=== PATIENT | female | born 1990 | race Hispanic/Latino ===

== ENCOUNTER 2017-11-13 12:05 | Emergency (ER) | payer OTHER, SELFPAY ==
[2017-11-13] MEDS ORDERED: Dexamethasone 4 mg/ml Vial ONE (12:34)
== END 2017-11-13 13:03 | disposition home or self-care (01) ==
LOC: ERS 12:05
DX: J02.9 Acute pharyngitis, unspecified (principal); F41.9 Anxiety disorder, unspecified; J45.909 Unspecified asthma, uncomplicated
CPT/HCPCS: 87081; 87430; 99283; J1100

== ENCOUNTER 2018-03-08 22:06 | Emergency (ER) | payer SELFPAY ==
[2018-03-09] MEDS ORDERED: diphenhydrAMINE 50 MG/ML VIAL ONE (00:07)
[2018-03-09] MEDS ORDERED: Metoclopramide HCl 10 MG/2 ML VIAL ONE (00:07)
[2018-03-09] MEDS ORDERED: Acetaminophen 500 MG TAB ONE (00:07)
[2018-03-09 00:14] LABS: #Basophils 0.1 thou/uL (0.0-0.2); #Eosinphils 0.2 thou/uL (0.0-0.7); #Lymphocytes 2.9 thou/uL (1.20-3.40); #Monocytes 0.8 thou/uL (0.11-0.59); #Neutrophils 4.3 thou/uL (1.40-6.50); %Basophils 0.9 % (0.0-1.0); %Lymphocytes 35.1 % (21.0-51.0); %Monocytes 9.6 % (0.0-10.0); %Neutrophils 52.4 % (42.0-75.0); Mean Corpuscular HGB CONC 31.8 g/dL (32.0-36.0); Mean Corpuscular Hemoglobin 26.9 pg (27.0-31.0); Mean Corpuscular Volume 84.5 fL (78.0-98.0); Mean Platelet Volume 7.3 fL (7.4-10.4); Platelet Count 339 thou/uL (130-400); RBC Distribution Width 15.9 % (11.5-14.5); Red Blood Cell (RBC) Count 4.45 mill/uL (4.20-5.40); White Blood Cell (WBC) Count 8.3 thou/uL (4.8-10.8)
[2018-03-09 00:35] LABS: ALT (SGPT) 7 U/L (8-55); AST (SGOT) 12 U/L (5-34); Albumin 3.9 g/dL (3.5-5.0); Alkaline Phosphatase 58 U/L (40-150); Anion Gap 13 mmol/L (10-20); BUN (Urea Nitrogen) 10 mg/dL (7.0-18.7); Bilirubin, Total Less than 0.2 mg/dL (0.2-1.2); Calc. Creatinine Clearance 0 mL/min (70-130); Calcium 9.4 mg/dL (7.8-10.44); Carbon Dioxide 24 mmol/L (22-29); Chloride 105 mmol/L (98-107); Estimated GFR-MDRD Greater than 90; Globulin 3.2 g/dL (2.4-3.5); Glucose 83 mg/dL (70-105); Potassium 3.6 mmol/L (3.5-5.1); Protein, Total 7.1 g/dL (6.0-8.3); Sodium 138 mmol/L (136-145)
[2018-03-09 00:39] LABS: Bilirubin Negative (Negative); Blood, Urine Negative (Negative); Clarity CLEAR (Clear); Glucose, Urine (Dipstick) Negative (Negative); Leukocyte Negative (Negative); Nitrite Negative (Negative); Protein, Urine (Dipstick) Negative (Neg-Trace); Specific Gravity, Urine 1.034 (1.002-1.036); Urobilinogen 0.2 mg/dL (0.2-1.0)
--- NOTE | 2018-03-09 08:19 | CT ---
PRELIMINARY REPORT/[facility]/EMERGENCY AFTER HOURS PROCEDURE: EXAM: CT Head Without Intravenous Contrast EXAM DATE/TIME: Exam ordered 03/09/2018 12:31 AM CLINICAL HISTORY: 27 years old, female; Pain; Headache; Migraine; Patient HX: , F27 with no HX of migraines presen ts with migraine x2 weeks. Pt also states she is (13 weeks). Pt states pain is right behind her eyes and in center of her forehead. Pt notes that over the past couple of days she has felt lethargic and has had some blurry vision. Pt reports photophobia and phonophobia. Pt reports a fhx of brain aneurism. Pt also reports sudden vomiting x2 days twice per day which she states is not associ ated with her morning sickness. Pt denies any numbness or tingling. TECHNIQUE: Axial computed tomography images of the head/brain without intravenous contrast. COMPARISON: No relevant prior studies available. FINDINGS: Brain: Unremarkable. No hemorrhage. No significant white matter disease. No edema. Ventricles: Unremarkable. No ventriculomegaly. Bones/joints: Unremarkable. No acute fracture. Soft tissues: Unremarkable. Sinuses: Unremarkable as visualized. No acute sinusitis. Mastoid air cells: Unremarkable as visualized. No mastoid effusion. IMPRESSION: Normal head/brain CT. Thank you for allowing us to participate in the care of your patient. Dictated and Authenticated by: Niraj Chase MD 03/09/2018 1:03 AM Central Time ([place] & [place]) FINAL REPORT CT BRAIN WITHOUT CONTRAST: Date: 03/08/18 FINDINGS/IMPRESSION: I agree with the preliminary report given by Ashlee. POS: [facility]
== END 2018-03-09 03:18 | disposition home or self-care (01) ==
LOC: ERS 22:06
DX: O99.89 Other specified diseases and conditions complicating pregnancy, childbirth and the puerperium (principal); R51 Headache; O99.511 Diseases of the respiratory system complicating pregnancy, first trimester; J45.909 Unspecified asthma, uncomplicated; O99.341 Other mental disorders complicating pregnancy, first trimester; F41.9 Anxiety disorder, unspecified; Z3A.13 13 weeks gestation of pregnancy
CPT/HCPCS: 36415; 70450; 80053; 81003; 85025; 96365; 96366; 96375; J1200; J2765

== ENCOUNTER 2018-05-21 14:09 | Outpatient (CLI) | payer OTHER ==
--- NOTE | 2018-05-21 15:44 | ULT ---
OBSTETRICAL ULTRASOUND: 05/21/18 COMPARISON: None. HISTORY: 28-year-old female undergoing evaluation of anatomy, size, and dates. TECHNIQUE: Multiplanar luna scale sonographic imaging of the gravid uterus obtained. A single intrauterine gestation is present with a heart rate of 140 beats per minute. pre sentation is vertex,. Placenta is located posteriorly, with no evidence for placental previa or abrup tion. Cervical length is estimated at at least 3.3 cm. intracranial contents, nose and lips, stomach, umbilical cord insertion and region of kidneys appears grossly unremarkable. Region of urinary bladder appears grossly unremarkable as does the umbilical cord. spine appears within normal limits. A three vessel cord is documented. Amniotic fluid index is approximately 7 cm. The four chamber heart view is suboptimal. BIOMETRY: BPD 5.4 cm 22 weeks, 4 days HC 21.0 cm 23 weeks, 1 day AC 17.2 cm 22 weeks, 1 day FL 4.2 cm 23 weeks, 5 days Average aged based on ultrasound is 22 weeks, 6 days. Estimated date of delivery is 09/18/18. Estimate d weight is 543 grams plus/minus 80 grams. IMPRESSION: Single live intrauterine gestation as detailed above. Amniotic fluid index is estimated at 7 cm. Four chamber heart view is suboptimal. POS: [facility]
== END 2018-05-21 14:10 | disposition home or self-care (01) ==
LOC: ULT 14:09
PROVIDERS: ATTEND Family Medicine
DX: Z34.82 Encounter for supervision of other normal pregnancy, second trimester (principal); Z3A.22 22 weeks gestation of pregnancy
CPT/HCPCS: 76805

== ENCOUNTER 2018-11-10 13:25 | Emergency (ER) | payer OTHER, SELFPAY ==
[2018-11-10] MEDS ORDERED: Lidocaine 1% w/Epinephrine 1:100K 20 ML VIAL ONE (14:27)
--- NOTE | 2018-11-10 14:33 | RAD ---
Radiograph right forearm 2 views: HISTORY: Laceration through glass FINDINGS: There is a small, somewhat faint radiopaque foreign body measuring approximate 6 x 1 mm in the soft t issues just medial to the proximal ulna at the elbow seen on the AP view. No subcutaneous emphysema. Radius and ulna are normal. IMPRESSION: Small density in the soft tissues of the elbow. This could either represent a foreign body such as gl ass embedded in the soft tissues, or a calcification.
[2018-11-10] MEDS ORDERED: Bacitracin Zinc 1 Packet ONE (14:56)
== END 2018-11-10 15:04 | disposition home or self-care (01) ==
LOC: ERS 13:25
DX: S51.811A Laceration without foreign body of right forearm, initial encounter (principal); W22.8XXA Striking against or struck by other objects, initial encounter
CPT/HCPCS: 12002; J2001

== ENCOUNTER 2019-05-07 14:44 | Emergency (ER) | payer SELFPAY ==
[2019-05-07] MEDS ORDERED: Proparacaine 0.5% Opth 15 ML BOT ONE (14:57)
[2019-05-07] MEDS ORDERED: Fluorescein Opthalmic Strip ONE (14:57)
[2019-05-07] MEDS ORDERED: Ciprofloxacin 0.3% Ophth Drops 2.5 ml Bottle L EYE SCH ×2 (15:30→15:45)
== END 2019-05-07 15:42 | disposition home or self-care (01) ==
LOC: ERS 14:44
DX: S05.02XA Injury of conjunctiva and corneal abrasion without foreign body, left eye, initial encounter (principal); F41.9 Anxiety disorder, unspecified; J45.909 Unspecified asthma, uncomplicated; X58.XXXA Exposure to other specified factors, initial encounter
CPT/HCPCS: 99283

== ENCOUNTER 2019-06-06 21:02 | Emergency (ER) | payer OTHER ==
[2019-06-06] MEDS ORDERED: Ibuprofen 200 MG TAB ONE (21:22)
== END 2019-06-06 22:04 | disposition home or self-care (01) ==
LOC: ERS 21:02
DX: J11.1 Influenza due to unidentified influenza virus with other respiratory manifestations (principal); F41.9 Anxiety disorder, unspecified; J45.909 Unspecified asthma, uncomplicated
CPT/HCPCS: 99281

== ENCOUNTER 2019-06-08 17:39 | Emergency (ER) | payer OTHER ==
[2019-06-08] MEDS ORDERED: Promethazine HCl 25 MG/ML VIAL ONE (19:04)
[2019-06-08 19:47] LABS: #Basophils 0.1 thou/uL (0.0-0.2); #Lymphocytes 2.2 thou/uL (1.20-3.40); #Monocytes 0.6 thou/uL (0.11-0.59); #Neutrophils 3.9 thou/uL (1.40-6.50); %Eosinophils 0.5 % (0.0-10.0); %Lymphocytes 31.6 % (21.0-51.0); %Monocytes 9.1 % (0.0-10.0); %Neutrophils 57.7 % (42.0-75.0); Hemoglobin 11.3 g/dL (12.0-16.0); Mean Corpuscular HGB CONC 30.9 g/dL (32.0-36.0); Mean Corpuscular Hemoglobin 24.9 pg (27.0-31.0); Mean Corpuscular Volume 80.5 fL (78.0-98.0); Mean Platelet Volume 8.3 fL (7.4-10.4); Platelet Count 280 thou/uL (130-400); RBC Distribution Width 16.8 % (11.5-14.5); Red Blood Cell (RBC) Count 4.53 mill/uL (4.20-5.40); White Blood Cell (WBC) Count 6.8 thou/uL (4.8-10.8)
[2019-06-08 20:09] LABS: ALT (SGPT) 10 U/L (8-55); AST (SGOT) 20 U/L (5-34); Alkaline Phosphatase 65 U/L (40-110); Anion Gap 13 mmol/L (10-20); BUN (Urea Nitrogen) 8 mg/dL (7.0-18.7); Bilirubin, Total Less than 0.2 mg/dL (0.2-1.2); Calc. Creatinine Clearance 0 mL/min (70-130); Calcium 8.7 mg/dL (7.8-10.44); Carbon Dioxide 27 mmol/L (22-29); Chloride 105 mmol/L (98-107); Estimated GFR-MDRD Greater than 90; Glucose 93 mg/dL (70-105); Lipase 44 U/L (8-78); Potassium 3.8 mmol/L (3.5-5.1); Sodium 141 mmol/L (136-145)
[2019-06-08] MEDS ORDERED: Ibuprofen 800 MG TAB ONE (20:26)
== END 2019-06-08 20:38 | disposition home or self-care (01) ==
LOC: ERS 17:39
DX: J06.9 Acute upper respiratory infection, unspecified (principal); F41.9 Anxiety disorder, unspecified
CPT/HCPCS: 36415; 80053; 83690; 85025; 87804; 96372; 99283; J2550

== ENCOUNTER 2019-06-12 16:26 | Emergency (ER) | payer OTHER | END 2019-06-12 19:06 | disposition left against medical advice (07) | LOC: ERS 16:26 | DX: Z53.21 Procedure and treatment not carried out due to patient leaving prior to being seen by health care provider (principal) ==